=== PATIENT | male | born 2000 | race African-American/Black ===

== ENCOUNTER 2018-07-14 22:29 | Emergency (ER) | payer SELFPAY, OTHER | END 2018-07-15 00:45 | disposition home or self-care (01) | LOC: FTE 22:29 | DX: J20.9 Acute bronchitis, unspecified (principal); J45.909 Unspecified asthma, uncomplicated | CPT/HCPCS: 99283 ==

== ENCOUNTER 2018-08-28 12:05 | Emergency (ER) | payer SELFPAY | END 2018-08-28 15:15 | disposition home or self-care (01) | LOC: FTE 12:05 | DX: S06.0X0A Concussion without loss of consciousness, initial encounter (principal); J45.909 Unspecified asthma, uncomplicated; V49.50XA Passenger injured in collision with unspecified motor vehicles in traffic accident, initial encounter | CPT/HCPCS: 70450; 72040; 99284-25 ==